=== PATIENT | male | born 1960 | race Caucasian/White ===

== ENCOUNTER 2017-04-05 18:20 | Inpatient (IN) | payer MEDICAID ==
[2017-04-05] MEDS ORDERED: fentaNYL 100 MCG/2 ML INJ IVP ONE ×2 (19:08)
[2017-04-05 19:09] LABS: PLATELET COUNT 263 10^3/uL (150-400)
[2017-04-05 19:19] LABS: PROTIME(PATIENT) 13.1 SEC (12.0-15.0)
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
[2017-04-05] MEDS ORDERED: ACETAMINOPHEN 500 MG TAB PO ONE ×2 (20:46)
[2017-04-06] MEDS ORDERED: ONDANSETRON DISINTEGRATING 4 MG TAB PO PRN ×2 (00:11)
[2017-04-06] MEDS: HYDROmorphONE/DILAUDID 1 MG/ML INJ IVP PRN ×4 (00:16→02:26)
[2017-04-06] MEDS: OXYCODONE/APAP 5/325 TAB PO PRN ×4 (00:22→04:06)
[2017-04-06] MEDS: D5W 1/2 NS 1,000 ML IV SCH ×4 (00:34→17:45)
[2017-04-06] MEDS ORDERED: oxyCODONE IR 5 MG TAB PO PRN ×2 (06:18)
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
[2017-04-06] MEDS: oxyCODONE IR 5 MG TAB PO PRN ×6 (10:45→22:08)
--- NOTE | 2017-04-06 12:52 | ASMTCASEMG ---
Living Arrangements What is your living Answers: Alone arrangement? Who do you live with? Type Of Residence What kind of residence do Answers: House you live in? Discharge Plan Comments Coordination Status Comments Notes: Pt is a 57 y/o man admitted after a fall and hitting his head. PT/OT/SPL have been ordered and awaiting recommendations. An order has also been put in for an evaluation for inpatient rehab. Needs are TBD at this time. CM to follow. Date Signed: 04/06/2017 12:51 PM Electronically Signed By:DELFINA Hardin
[2017-04-06] MEDS: KETOROLAC 15 MG/1 ML SDV IVP SCH ×4 (14:24→17:42)
--- NOTE | 2017-04-06 15:54 | GCON ---
[f rep st] CONSULTATION DATE OF CONSULTATION: 04/06/2017 DIAGNOSES: 1. A left wrist dorsal triquetral avulsion fracture. 2. A right scaphoid fracture and radial styloid fracture. HISTORY OF PRESENT ILLNESS: The patient is a 57-year-old male who sustained a fall type injury, inju ring both wrists. X-rays were taken in the emergency room which showed a fracture of the left wrist at the triquetral area and also of the right wrist at the scaphoid and radial styloid. The patient w as placed into a thumb Spica splint for the right wrist and a volar splint on the left wrist. Orthop edics was consulted for these fractures. PAST MEDICAL HISTORY: The patient denies any significant medical history. SOCIAL HISTORY: He is , currently living alone. PHYSICAL EXAMINATION: GENERAL: The patient is alert and oriented and in no acute distress. wrist shows the skin is intact at splint edges. He has full range of motion of all finger s and is only slightly tender over the dorsal surface of the wrist and neurovascularly intact. Right wrist shows skin intact. He has tenderness over the distal surface of the radius and over the scaph oid. He has full range of motion at the thumb passively and actively with full resistance. Compartm ents are soft and he is neurovascularly intact. X-RAYS: Were reviewed, show a minimally displaced fracture in the left wrist through the triquetrum with a slight avulsion fracture. No other fractures are seen. X-rays of the right wrist show a minimally displaced scaphoid fracture through the waist and a small, nondisplaced fracture of the radial styloid. No other fractures are appreciated. ASSESSMENT/PLAN: The patient presents with fractures of both wrists. He is currently in splints for both of those which he will remain in until he is seen in the office in 1 week. The patient was giv en our contact information to see either Dr. Joseph or his PA next week for splint changes and new x-ra ys. The patient understands that these will take up to 6 weeks to completely heal. He also understa nds that on the right wrist there is a small chance that this could require compression screw placeme nt if it does not heal. This was all explained to the patient. He may use oral oxycodone for pain c ontrol if needed. He should try to avoid anti-inflammatories if possible. /[id number]/MODL
--- NOTE | 2017-04-06 21:31 | SOAPPROG ---
SOAP Progress Note Assessment/Plan: Assessment: Plan: Subjective: states his right hurts more than the left splint on right and left NVI cont splints FU in office Objective: Vital Signs Temp Pulse Resp BP Pulse Ox 37.1 C 62 18 97/67 L 95 04/06/17 19:42 04/06/17 19:42 04/06/17 19:42 04/06/17 19:42 04/06/17 19:42 04/05/17 04/06/17 04/07/17 05:59 05:59 05:59 Intake Total 631 Balance 631 PT 13.1 SEC (12.0-15.0) 04/05/17 19:00 INR 1.00 (0.83-1.16) 04/05/17 19:00 ICD10 Worksheet Patient Problems: Problems Problem Status Onset Closed head injury Acute Concussion Acute Fracture of scaphoid of right wrist Acute Laceration of eyebrow Acute Scalp laceration Acute
[2017-04-07] MEDS: KETOROLAC 15 MG/1 ML SDV IVP SCH ×6 (00:06→12:27)
[2017-04-07 05:01] VITALS: O2SAT 95
[2017-04-07 07:38] VITALS: BP 137/82; PULSE 67; RESP 14; TEMP 97.9
[2017-04-07] MEDS: oxyCODONE IR 5 MG TAB PO PRN ×4 (08:46→12:27)
[2017-04-07] MEDS ORDERED: MAGNESIUM HYDROXIDE 30 ML UDCUP PO PRN ×2 (09:01)
[2017-04-07] MEDS ORDERED: LACTULOSE 20 GM/30 ML UDCUP PO PRN ×2 (09:01)
[2017-04-07] MEDS ORDERED: BISACODYL 10 MG SUPP PR PRN ×2 (09:01)
[2017-04-07] MEDS ORDERED: POLYETHYLENE GLYCOL 3350 17 GM PKT PO PRN ×2 (09:01)
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
[2017-04-07] MEDS ORDERED: SENNOSIDES/DOCUSATE SODIUM TAB PO SCH ×2 (09:15)
--- NOTE | 2017-04-07 12:22 | ASDISCHSUM ---
Discharge Information Plan Status:Home with No Needs Medically Cleared to Leave: Discharge Date: CM D/C Disposition:Home, Routine, Self-Care ADT D/C Disposition:Home, Routine, Self-Care Projected Discharge Date: Transportation at D/C: Discharge Delay Reason: Follow-Up Date: Discharge Slot: Final Diagnosis: Placement Information Patient Contact Information Contact Name:NINA Relationship:Mayra Address: Work Phone: City: [facility] Phone: State/[place] Code: Email: Financial Information Financial Class: Primary Plan Desc:[facility]ICA[facility] Primary Plan Number:[id number] Secondary Plan Desc: Secondary Plan Number: Assessment Information [facility] Initial CM Assessment Living Arrangements What is your living Answers: Alone arrangement? Who do you live with? Type Of Residence What kind of residence do Answers: House you live in? Discharge Plan Comments Coordination Status Comments Notes: Pt is a 57 y/o man admitted after a fall and hitting his head. PT/OT/SPL have been ordered and awaiting recommendations. An order has also been put in for an evaluation for inpatient rehab. Needs are TBD at this time. CM to follow. Date Signed: 04/06/2017 12:51 PM Electronically Signed By:DELFINA Hardin [facility] CM Progress Note CM Note CM Note Notes: Pt was cleared by PT to dc independantly. Pt lives out of his camper with his dogs. Met w/pt who is ready for dc. Pt did not have ride so provided him with 2 bus passes to get his prescriptions and to get to his camper, reinforced importance of pt not driving per RN and he said he understood this. Date Signed: 04/07/2017 12:21 PM Electronically Signed By:Camryn Overton RN Intervention Information Intervention Type:*Incorrect Registration Date of Service:04/06/2017 11:38 AM Patient Type:Inpatient Staff Member:DREA Bueno Susan Hours: Discipline: Severity: Comment:
--- NOTE | 2017-04-07 12:22 | ASDISCHSUM ---
Discharge Information Plan Status:Home with No Needs Medically Cleared to Leave: Discharge Date: CM D/C Disposition:Home, Routine, Self-Care ADT D/C Disposition:Home, Routine, Self-Care Projected Discharge Date: Transportation at D/C: Discharge Delay Reason: Follow-Up Date: Discharge Slot: Final Diagnosis: Placement Information Patient Contact Information Contact Name:NINA Relationship:Mayra Address: Work Phone: City: [facility] Phone: State/[place] Code: Email: Financial Information Financial Class: Primary Plan Desc:[facility]ICA[facility] Primary Plan Number:[id number] Secondary Plan Desc: Secondary Plan Number: Assessment Information [facility] Initial CM Assessment Living Arrangements What is your living Answers: Alone arrangement? Who do you live with? Type Of Residence What kind of residence do Answers: House you live in? Discharge Plan Comments Coordination Status Comments Notes: Pt is a 57 y/o man admitted after a fall and hitting his head. PT/OT/SPL have been ordered and awaiting recommendations. An order has also been put in for an evaluation for inpatient rehab. Needs are TBD at this time. CM to follow. Date Signed: 04/06/2017 12:51 PM Electronically Signed By:DELFINA Hardin [facility] CM Progress Note CM Note CM Note Notes: Pt was cleared by PT to dc independantly. Pt lives out of his camper with his dogs. Met w/pt who is ready for dc. Pt did not have ride so provided him with 2 bus passes to get his prescriptions and to get to his camper, reinforced importance of pt not driving per RN and he said he understood this. Date Signed: 04/07/2017 12:21 PM Electronically Signed By:Camryn Overton RN Intervention Information Intervention Type:*Incorrect Registration Date of Service:04/06/2017 11:38 AM Patient Type:Inpatient Staff Member:DREA Bueno Susan Hours: Discipline: Severity: Comment:
--- NOTE | 2017-04-07 12:22 | ASDISCHSUM ---
Discharge Information Plan Status:Home with No Needs Medically Cleared to Leave: Discharge Date: CM D/C Disposition:Home, Routine, Self-Care ADT D/C Disposition:Home, Routine, Self-Care Projected Discharge Date: Transportation at D/C: Discharge Delay Reason: Follow-Up Date: Discharge Slot: Final Diagnosis: Placement Information Patient Contact Information Contact Name:NINA Relationship:Mayra Address: Work Phone: City: [facility] Phone: State/[place] Code: Email: Financial Information Financial Class: Primary Plan Desc:[facility]ICA[facility] Primary Plan Number:[id number] Secondary Plan Desc: Secondary Plan Number: Assessment Information [facility] Initial CM Assessment Living Arrangements What is your living Answers: Alone arrangement? Who do you live with? Type Of Residence What kind of residence do Answers: House you live in? Discharge Plan Comments Coordination Status Comments Notes: Pt is a 57 y/o man admitted after a fall and hitting his head. PT/OT/SPL have been ordered and awaiting recommendations. An order has also been put in for an evaluation for inpatient rehab. Needs are TBD at this time. CM to follow. Date Signed: 04/06/2017 12:51 PM Electronically Signed By:DELFINA Hardin [facility] CM Progress Note CM Note CM Note Notes: Pt was cleared by PT to dc independantly. Pt lives out of his camper with his dogs. Met w/pt who is ready for dc. Pt did not have ride so provided him with 2 bus passes to get his prescriptions and to get to his camper, reinforced importance of pt not driving per RN and he said he understood this. Date Signed: 04/07/2017 12:21 PM Electronically Signed By:Camryn Overton RN Intervention Information Intervention Type:*Incorrect Registration Date of Service:04/06/2017 11:38 AM Patient Type:Inpatient Staff Member:DREA Bueno Susan Hours: Discipline: Severity: Comment:
== END 2017-04-07 13:00 | disposition home or self-care (01) | DRG 89 ==
LOC: EDUNIT# → F3N 23:20 → OBSVTOIN 04-06 10:35
PROVIDERS: ADMIT Surgery; ATTEND Surgery
PROC: 2W3DX1Z Immobilization of Left Lower Arm using Splint (ICD-10-PCS; principal; 2017-04-06)
PROC: 0HQ1XZZ Repair Face Skin, External Approach (ICD-10-PCS; principal; 2017-04-06)
PROC: 2W3CX1Z Immobilization of Right Lower Arm using Splint (ICD-10-PCS; principal; 2017-04-06)
PROC: 0HQ0XZZ Repair Scalp Skin, External Approach (ICD-10-PCS; principal; 2017-04-06)
DX: S06.0X0A Concussion without loss of consciousness, initial encounter (principal); S62.112A Displaced fracture of triquetrum [cuneiform] bone, left wrist, initial encounter for closed fracture; S62.001A Unspecified fracture of navicular [scaphoid] bone of right wrist, initial encounter for closed fracture; S52.514A Nondisplaced fracture of right radial styloid process, initial encounter for closed fracture; S01.01XA Laceration without foreign body of scalp, initial encounter; S01.112A Laceration without foreign body of left eyelid and periocular area, initial encounter; W01.198A Fall on same level from slipping, tripping and stumbling with subsequent striking against other object, initial encounter; Y92.014 Private driveway to single-family (private) house as the place of occurrence of the external cause; Y93.89 Activity, other specified; M24.851 Other specific joint derangements of right hip, not elsewhere classified; M50.322 Other cervical disc degeneration at C5-C6 level
CPT/HCPCS: 82947-QW; 92523-GN; 96374; 97161-GP; 97165-GO; G9168-GO-CI; G9169-GN-CI; J1170; J1885; J3010